=== PATIENT | female | born 1985 | race Caucasian/White ===

== ENCOUNTER 2020-09-24 10:15 | Emergency (ER) | payer MEDICAID ==
[~2020-09-24] VITALS: Ht 170.2 cm; Wt 115.0 kg
--- NOTE | 2020-09-24 10:25 | NUR ---
PT BIB [facility]. PT STATED "I HAVE POOP COMING OUT OF MY VAGINA." PT STATED THAT THIS MORNING SHE "SHE DID TWO HITS OF METH, TWO HITS OF HEROIN, SMOKED SOME WEED" THEN WENT TO THE BATHROOM AND NOTICED THAT STOOL KEPT COMING OUT OF HER VAGINA. PT DENIES ANY PAIN, VAGINAL DISCHARGE OR BLEEDING.
[2020-09-24 10:39] VITALS: BP 167/81
--- NOTE | 2020-09-24 11:03 | NUR ---
DISCHARGE INSTRUCTIONS REVIEWED WITH PT. ALL QUESTIONS ANSWERED AT THIS TIME.
== END 2020-09-24 11:05 | disposition home or self-care (01) ==
LOC: ED 10:47
DX: F15.10 Other stimulant abuse, uncomplicated (principal); I10 Essential (primary) hypertension; E66.9 Obesity, unspecified
CPT/HCPCS: 99284

== ENCOUNTER 2020-09-25 08:41 | Emergency (ER) | payer MEDICAID ==
[~2020-09-25] VITALS: Ht 170.2 cm; Wt 112.0 kg
--- NOTE | 2020-09-25 09:31 | NUR ---
PT C/O SORE THROAT AND FEELING FEVERISH. PT STATES SHE HAS BEEN IN THE SUN ALOT LATELY AND HAS BEEN DEALING WITH A SUNBURN PT ALSO RECENTLY FINISHED A COURSE OF ANTIBIOTICS FOR A SKIN INFECTION FROM PREVIOUS SUNBURNS.
[2020-09-25 11:13] VITALS: BP 117/79
--- NOTE | 2020-09-25 11:17 | NUR ---
PT REC'VD DICHARGE INSTRUCTIONS AND EDUCATION. PT HAD NO QUESTIONS. PT AMBULATED TO DC AREA, STEADY GAIT.
== END 2020-09-25 11:27 | disposition home or self-care (01) ==
LOC: ED 09:18
DX: J02.9 Acute pharyngitis, unspecified (principal); Z20.822 Contact with and (suspected) exposure to COVID-19; R50.9 Fever, unspecified; R05 Cough; F17.200 Nicotine dependence, unspecified, uncomplicated
CPT/HCPCS: 87081; 87880; 99283; U0003; U0005